=== PATIENT | female | born 1975 | race Caucasian/White ===

== ENCOUNTER 2023-03-14 12:21 | Outpatient (AMB) | payer OTHER, SELFPAY ==
[2023-03-14 13:36] VITALS: BP 144/82; PULSE 101; TEMP 36.9; O2SAT 98; BMI 27.9
--- NOTE | 2023-03-14 13:36 | MHC.OFFWIV ---
Intake Vital Signs 03/14/23 13:36 Height 4 ft 11 in Weight 62.652 kg BMI 27.9 BP 144/82 H Blood Pressure Location Lt brachial Position Sitting Pulse 101 H Pulse Source Pulse Oximeter Temp 98.4 F Temp Source Oral Pulse Oximetry (%) 98 Oxygen Delivery Method Room Air Intake Visit Reasons: [employer] Rt Wrist Injury Intake Note: Pt is here today for Rt wrist injury, happened yesterday. Patient Tobacco Use Status: Never used Tobacco Allergies No Known Allergies Allergy (Verified 03/14/23 13:40) Do you need a note to return to daycare/school/sports/work: Yes HPI HPI Comments History of Present Illness Details 1406 This is a 48-year-old female presenting status post slip and fall yesterday, patient was wearing slippery socks, fell back onto her right hand, fell onto an outstretched hand. Since then has been having pain and swelling to her right wrist/hand region. Patient reports that her wrist/hand are more painful with movement better at rest. Intermittent numbness and tingling. Never had an issue with her right wrist in the past. Did not hit her head, no loss of consciousness, no other injury sustained during fall. Not on blood thinners. Denies fevers and chills, chest pain and shortness of breath Physical exam full range of motion to bilateral wrists slight discomfort with range of motion of right wrist. Sensation intact to bilateral upper extremities distally. No wrist drop. Capillary refill less than 2 seconds. There is slight swelling noted to the dorsal aspect of right wrist/hand. No point tenderness. History and physical exam concerning for sprain or strain. Unlikely fracture dislocation. No signs of neurovascular compromise, threat to limb. Plan imaging, naproxen and orthopedic consult. Educated patient on diagnosis and treatment plan, answered all question, patient verbalizes understanding. At this time patient will be discharged home, advised to return with new or worsening symptoms. Educated on worrisome signs and symptoms and when to return. At this time I feel comfortable discharge home. [facility] Social History Patient Tobacco Use Status: Never used Tobacco Review of Systems Const Details: Constitutional : No Weight loss, No Fever, No Chills, No Fatigue, No Malaise ENT/Mouth : No sore throat, No Rhinorrhea Eyes: No Eye Pain, No Swelling, No Redness Cardiovascular : No Chest Pain, No SOB, No Dyspnea on Exertion, No Orthopnea, No Edema, No Palpitations Respiratory : No Cough, No Sputum, No Wheezing Gastrointestinal : No Nausea, No Vomiting, No Diarrhea, No Constipation, No abdominal Pain, No Hematochezia, No Melena Genitourinary : No Dysuria, No Urinary Frequency, No Hematuria, Musculoskeletal : + joint pain, No Myalgias, + Joint Swelling Skin : No Skin Lesions, No rash Neuro : No Weakness, No Numbness, No Dizziness, No Headache Psych : No Anxiety/Panic, No Depression All other systems reviewed and are negative All systems reviewed & are unremarkable except as noted in HPI and below Physical Exam Vital Signs: Last Vital Signs Temp 98.4 F 03/14/23 13:36 Pulse 101 H 03/14/23 13:36 BP 144/82 H 03/14/23 13:36 Pulse Ox 98 03/14/23 13:36 Oxygen Delivery Method Room Air 03/14/23 13:36 BMI result Body Mass Index 27.9 Vital signs significant for slight tachycardia patient has white coat syndrome and is very anxious Appearance: Alert.? Oriented X3.? No acute distress.? Head: Normocephalic, atraumatic, no step-offs or deformities Eyes: Pupils equal, round and reactive to light.? CVS: Normal heart rate and rhythm.? Pulses normal.? Respiratory: No respiratory distress.? Breath sounds normal.? Abdomen: Soft and nontender.? Skin: Skin warm and dry.? Normal skin color.? Normal skin turgor.? Extremities: No lower extremity edema.? No calf ttp. 5/5 strength to bilateral upper and lower extremities full range of motion to bilateral wrists slight discomfort with range of motion of right wrist. Sensation intact to bilateral upper extremities distally. No wrist drop. Capillary refill less than 2 seconds. There is slight swelling noted to the dorsal aspect of right wrist/hand. No point tenderness. Back: No midline tenderness, no C-spine tenderness, full range of motion, no CVA tenderness bilaterally Neuro: Oriented X 3.? No motor deficit.? No sensory deficit. CN 2-12 intact Assessment & Plan Assessment & Plan (1) Right wrist pain: Code(s): M25.531 - Pain in right wrist Plan Take your medications as prescribed. If you were prescribed antibiotics today, it is important that you take your medication to their entirety, do not skip any doses, do not finish them early. Follow-up with your primary care provider this week. Return to the emergency department with new or worsening symptoms. Such as fevers, chills, chest pain, shortness of breath, nausea, vomiting, dizziness, headache, vision changes, lethargy In case of emergency call 911 Rest, ice, compress and elevate extremity. Orders: Orders XR wrist RT 2V Today M25.531 - Pain in right wrist XR hand RT 2V Today M25.531 - Pain in right wrist Referrals Orthopedics Referral M25.531 - Pain in right wrist Medications: New diclofenac sodium 1% (Voltaren Arthritis Pain) apply to single elbow, wrist or hand; for hand includes palm/fingers/back of hand 2 grams topical QID 100 grams 2RF naproxen 500 mg PO BID PRN 14 tabs 0RF pain Coding Level of Care Code Est Pt Level 3 (85074) Diagnoses Right wrist pain M25.531
== END 2023-03-14 14:02 | disposition home or self-care (01) ==
PROVIDERS: Visit Provider Physician Assistant
DX: M25.531 Pain in right wrist (principal)
CPT/HCPCS: 99213

== ENCOUNTER 2023-03-14 14:03 | Outpatient (REF) | payer OTHER, SELFPAY ==
--- NOTE | ~2023-03-14 | XR_ITS ---
EXAMINATION: XR WRIST, RIGHT XR HAND, RIGHT CLINICAL INFORMATION: Pain COMPARISON: None available. TECHNIQUE: 3 views of the right hand and wrist FINDINGS: No acute visible fracture or dislocation. 2 mm ossific focus region of the ulnar styloid may reflect sequela of remote trauma. Joint spaces and alignment are maintained. Soft tissues are unremarkable XR/XR hand wrist RT IMPRESSION: 1. No acute visible fracture or dislocation. 2. 2 mm ossific focus region of the ulnar styloid may reflect sequela of remote trauma.
== END 2023-03-14 14:04 | disposition home or self-care (01) ==
LOC: HO.HMGCX 14:03
PROVIDERS: Visit Provider Physician Assistant
DX: M25.531 Pain in right wrist (principal)
CPT/HCPCS: 73110; 73130